=== PATIENT | female | born 1995 | race Caucasian/White ===

== ENCOUNTER 2018-02-01 03:09 | Emergency (ER) | payer BC ==
[~2018-02-01] VITALS: Ht 152.4 cm; Wt 52.2 kg
[2018-02-01] MEDS ORDERED: ZOFRAN ODT4 MG PO (07:26)
[2018-02-01] MEDS ORDERED: ZANTAC300 MG PO (07:26)
== END 2018-02-01 07:37 | disposition home or self-care (01) ==
LOC: ER 03:09
DX: F10.129 Alcohol abuse with intoxication, unspecified (principal); Y90.9 Presence of alcohol in blood, level not specified

== ENCOUNTER 2022-10-17 10:36 | Outpatient (CLI) | payer OTHER ==
[~2022-10-17 10:36] MED LIST: ZANTAC300 MG PO; ZOFRAN ODT4 MG PO
== END 2022-10-17 12:35 | disposition home or self-care (01) ==
LOC: PRENATAL 10:36
PROVIDERS: ATTEND Obstetrics & Gynecology Maternal & Fetal Medicine
DX: O36.80X0 Pregnancy with inconclusive fetal viability, not applicable or unspecified (principal)

== ENCOUNTER 2022-12-16 08:19 | Outpatient (CLI) | payer OTHER | END 2022-12-16 09:25 | disposition home or self-care (01) | LOC: PRENATAL 08:19 | PROVIDERS: ATTEND Obstetrics & Gynecology Maternal & Fetal Medicine | DX: O35.9XX0 Maternal care for (suspected) fetal abnormality and damage, unspecified, not applicable or unspecified (principal); O35.3XX0 Maternal care for (suspected) damage to fetus from viral disease in mother, not applicable or unspecified; O44.00 Complete placenta previa NOS or without hemorrhage, unspecified trimester; Z3A.19 19 weeks gestation of pregnancy ==

== ENCOUNTER 2023-05-04 06:51 | Outpatient (CLI) | payer BC ==
[2023-05-04] MEDS ORDERED: PRENATAL TABLE1 EAC1 PO (07:21)
== END 2023-05-04 08:59 | disposition left against medical advice (07) ==
LOC: OBS/DEL 06:51
PROVIDERS: ATTEND Obstetrics & Gynecology Gynecology
DX: O36.8130 Decreased fetal movements, third trimester, not applicable or unspecified (principal); Z3A.39 39 weeks gestation of pregnancy

== ENCOUNTER 2023-05-06 03:44 | Inpatient (IN) | payer BC ==
[~2023-05-06] VITALS: Ht 154.9 cm; Wt 60.3 kg
[~2023-05-06 03:44] MED LIST changes: +PRENATAL TABLE1 EAC1 PO
== END 2023-05-10 15:15 | disposition home or self-care (01) | DRG 807 ==
LOC: OB/GYN 03:44 → LDR 03:44 → OB/GYN 16:12
PROVIDERS: ADMIT Obstetrics & Gynecology Gynecology; ATTEND Obstetrics & Gynecology Gynecology
PROC: 10E0XZZ Delivery of Products of Conception, External Approach (ICD-10-PCS; principal; 2023-05-06)
PROC: 0UQG7ZZ Repair Vagina, Via Natural or Artificial Opening (ICD-10-PCS; 2023-05-06)
PROC: 4A1HXCZ Monitoring of Products of Conception, Cardiac Rate, External Approach (ICD-10-PCS; 2023-05-06)
DX: O71.4 Obstetric high vaginal laceration alone (principal); Z37.0 Single live birth; Z3A.39 39 weeks gestation of pregnancy